=== PATIENT | female | born 1940 | race Caucasian/White ===

== ENCOUNTER 2016-06-08 11:27 | Outpatient (CLI) | payer OTHER, BC ==
[2016-06-08] MEDS ORDERED: IMMUNE GLOBULIN 10 GM/100 ML VIAL IV ONE (12:00)
[2016-06-08] MEDS ORDERED: IMMUNE GLOBULIN 20 GM/200 ML VIAL IV ONE (12:00)
[2016-06-08 20:05] VITALS: RESP 18
[2016-06-08 20:09] VITALS: BP 121/67; PULSE 55; TEMP 98.2; O2SAT 92
== END 2016-06-08 19:52 | disposition home or self-care (01) ==
LOC: F1NOP 11:27
PROVIDERS: ATTEND Internal Medicine
PROC: 3E033GC Introduction of Other Therapeutic Substance into Peripheral Vein, Percutaneous Approach (ICD-10-PCS; principal; 2016-06-08)
DX: D80.3 Selective deficiency of immunoglobulin G [IgG] subclasses (principal)
CPT/HCPCS: 36430; 96365; 96366; J1459

== ENCOUNTER → 2016-07-12 | Outpatient (CLI) | payer OTHER, BC ==
[~2016-07-12] MED LIST: IMMUNE GLOBULIN 100 ML IV ONE; IMMUNE GLOBULIN 200 ML IV ONE
[2016-07-12 16:18] VITALS: RESP 16; TEMP 97.7
[2016-07-12 16:28] VITALS: BP 128/59; PULSE 61; O2SAT 92
== END ==
LOC: FOBOP 10:34
PROVIDERS: ATTEND Internal Medicine
PROC: 3E033GC Introduction of Other Therapeutic Substance into Peripheral Vein, Percutaneous Approach (ICD-10-PCS; principal; 2016-07-12)
DX: D84.9 Immunodeficiency, unspecified (principal)
CPT/HCPCS: J1459 ×2

== ENCOUNTER → 2016-08-09 | Outpatient (CLI) | payer OTHER, BC | LOC: FCPNEURO 21:00 | PROVIDERS: ATTEND Psychiatry & Neurology Sleep Medicine | DX: G47.33 Obstructive sleep apnea (adult) (pediatric) (principal); G47.36 Sleep related hypoventilation in conditions classified elsewhere; G47.61 Periodic limb movement disorder ==

== ENCOUNTER 2016-08-17 10:58 | Outpatient (CLI) | payer OTHER, BC ==
[2016-08-17] MEDS ORDERED: IMMUNE GLOBULIN 10 GM/100 ML VIAL IV ONE ×2 (11:30→15:30)
[2016-08-17] MEDS ORDERED: IMMUNE GLOBULIN 20 GM/200 ML VIAL IV ONE (11:30)
[2016-08-17 16:54] VITALS: RESP 18; TEMP 98.6
[2016-08-17 16:55] VITALS: BP 117/64; PULSE 83; O2SAT 92
== END 2016-08-17 17:02 | disposition home or self-care (01) ==
LOC: F1NOP 10:58
PROVIDERS: ATTEND Internal Medicine
PROC: 3E033GC Introduction of Other Therapeutic Substance into Peripheral Vein, Percutaneous Approach (ICD-10-PCS; principal; 2016-08-17)
DX: D84.9 Immunodeficiency, unspecified (principal)
CPT/HCPCS: 96365; 96366; J1459

== ENCOUNTER 2016-09-21 10:08 | Outpatient (CLI) | payer OTHER, BC ==
[2016-09-21] MEDS ORDERED: IMMUNE GLOBULIN 20 GM/200 ML VIAL IV ONE (10:30)
[2016-09-21] MEDS ORDERED: IMMUNE GLOBULIN 10 GM/100 ML VIAL IV ONE ×2 (10:30→16:14)
[2016-09-21 10:41] VITALS: TEMP 98.4
[2016-09-21 11:47] VITALS: RESP 17
[2016-09-21 12:24] VITALS: O2SAT 93
[2016-09-21 12:30] VITALS: BP 137/80; PULSE 68
== END 2016-09-21 16:32 | disposition home or self-care (01) ==
LOC: F1NOP 10:08
PROVIDERS: ATTEND Internal Medicine
DX: D84.9 Immunodeficiency, unspecified (principal)
CPT/HCPCS: 96365; 96366; J1459; J1642

== ENCOUNTER → 2016-10-11 | Outpatient (CLI) | payer OTHER, BC | LOC: BRMIMAGING 13:38 | DX: Z13.820 Encounter for screening for osteoporosis (principal); Z81.0 Family history of intellectual disabilities ==

== ENCOUNTER → 2016-10-18 | Outpatient (CLI) | payer OTHER, BC | LOC: FIMAGING 15:29 | DX: M41.83 Other forms of scoliosis, cervicothoracic region (principal); M21.751 Unequal limb length (acquired), right femur ==

== ENCOUNTER 2016-10-26 10:59 | Outpatient (CLI) | payer OTHER, BC ==
[2016-10-26] MEDS ORDERED: ACETAMINOPHEN 500 MG TAB PO SCH (11:15)
[2016-10-26] MEDS ORDERED: IMMUNE GLOBULIN 20 GM/200 ML VIAL IV SCH (11:15)
[2016-10-26] MEDS ORDERED: IMMUNE GLOBULIN 10 GM/100 ML VIAL IV SCH (11:30)
[2016-10-26 12:31] VITALS: O2SAT 93
[2016-10-26 13:05] VITALS: TEMP 98.4
[2016-10-26 14:35] VITALS: BP 116/79; PULSE 91; RESP 18
== END 2016-10-26 15:44 | disposition home or self-care (01) ==
LOC: F1NOP 10:59
PROVIDERS: ATTEND Internal Medicine
PROC: 3E033GC Introduction of Other Therapeutic Substance into Peripheral Vein, Percutaneous Approach (ICD-10-PCS; principal; 2016-10-26)
DX: D80.3 Selective deficiency of immunoglobulin G [IgG] subclasses (principal); J18.9 Pneumonia, unspecified organism
CPT/HCPCS: 96365; 96366; J1459; J1642

== ENCOUNTER 2016-11-28 11:31 | Outpatient (CLI) | payer OTHER, BC ==
[~2016-11-28 11:31] MED LIST changes: -IMMUNE GLOBULIN 100 ML IV ONE; +IMMUNE GLOBULIN 20 GM/200 ML VIAL IV ONE; -IMMUNE GLOBULIN 200 ML IV ONE; +IMMUNE GLOBULIN GAMMA IM ONE; +[UNRECOGNIZED DRUG - OTHER] IM ONE
[2016-11-28] MEDS ORDERED: IMMUNE GLOBULIN 20 GM/200 ML VIAL IV ONE ×2 (11:45→12:15)
[2016-11-28] MEDS ORDERED: IMMUNE GLOBULIN 10 GM/100 ML VIAL IV ONE (12:15)
[2016-11-28 17:05] VITALS: BP 126/62; PULSE 61; RESP 16; TEMP 98.1; O2SAT 92
== END 2016-11-28 18:06 | disposition home or self-care (01) ==
LOC: F1NOP 11:31
PROVIDERS: ATTEND Internal Medicine
PROC: 3E033GC Introduction of Other Therapeutic Substance into Peripheral Vein, Percutaneous Approach (ICD-10-PCS; principal; 2016-11-28)
DX: D80.3 Selective deficiency of immunoglobulin G [IgG] subclasses (principal); Z87.01 Personal history of pneumonia (recurrent)
CPT/HCPCS: 96365; 96366; J1459; J1642

== ENCOUNTER → 2016-12-21 | Outpatient (CLI) | payer OTHER, BC ==
[~2016-12-21] MED LIST changes: +ACETAMINOPHEN 500 MG TAB PO SCH; +IMMUNE GLOBULIN 10 GM/100 ML VIAL IV ONE; +IMMUNE GLOBULIN 20 GM/200 ML VIAL IV SCH; -IMMUNE GLOBULIN GAMMA IM ONE; -[UNRECOGNIZED DRUG - OTHER] IM ONE; +diphenhydrAMINE 25 MG CAP PO SCH
[2016-12-21 14:29] VITALS: TEMP 98.8
[2016-12-21 15:02] VITALS: BP 136/72; PULSE 73; RESP 17; O2SAT 92
== END ==
LOC: F1NOP 12:19
PROVIDERS: ATTEND Internal Medicine
PROC: 3E033GC Introduction of Other Therapeutic Substance into Peripheral Vein, Percutaneous Approach (ICD-10-PCS; principal; 2016-12-21)
DX: D80.3 Selective deficiency of immunoglobulin G [IgG] subclasses (principal)
CPT/HCPCS: J1459; J1642

== ENCOUNTER → 2017-01-27 | Outpatient (CLI) | payer OTHER, BC ==
[~2017-01-27] MED LIST changes: -ACETAMINOPHEN 500 MG TAB PO SCH; -IMMUNE GLOBULIN 20 GM/200 ML VIAL IV SCH; -diphenhydrAMINE 25 MG CAP PO SCH
[2017-01-27 11:27] VITALS: BP 119/68; PULSE 61; RESP 18; TEMP 97.9; O2SAT 93
== END ==
LOC: F1NOP 10:36
PROVIDERS: ATTEND Internal Medicine
PROC: 3E033GC Introduction of Other Therapeutic Substance into Peripheral Vein, Percutaneous Approach (ICD-10-PCS; principal; 2017-01-27)
DX: D80.3 Selective deficiency of immunoglobulin G [IgG] subclasses (principal)
CPT/HCPCS: 96365; 96366; J1459; J1642

== ENCOUNTER 2017-02-27 11:10 | Outpatient (CLI) | payer OTHER, BC ==
[2017-02-27] MEDS ORDERED: diphenhydrAMINE 25 MG CAP PO ONE (11:21)
[2017-02-27] MEDS ORDERED: ACETAMINOPHEN 500 MG TAB PO ONE (11:21)
[2017-02-27] MEDS ORDERED: IMMUNE GLOBULIN 20 GM/200 ML VIAL IV ONE (12:30)
[2017-02-27] MEDS ORDERED: IMMUNE GLOBULIN 10 GM/100 ML VIAL IV ONE (12:30)
[2017-02-27 12:52] VITALS: TEMP 98.1
[2017-02-27 13:11] VITALS: O2SAT 93
[2017-02-27 14:02] VITALS: BP 113/84; PULSE 69; RESP 18
== END 2017-02-27 15:38 | disposition home or self-care (01) ==
LOC: F1NOP 11:10
PROVIDERS: ATTEND Internal Medicine
PROC: 3E033GC Introduction of Other Therapeutic Substance into Peripheral Vein, Percutaneous Approach (ICD-10-PCS; principal; 2017-02-27)
DX: D80.3 Selective deficiency of immunoglobulin G [IgG] subclasses (principal)
CPT/HCPCS: 96365; 96366; J1459; J1642

== ENCOUNTER 2017-05-06 10:39 | Outpatient (CLI) | payer OTHER, BC ==
[2017-05-06] MEDS ORDERED: IMMUNE GLOBULIN 20 GM/200 ML VIAL IV SCH ×2 (11:09→11:45)
[2017-05-06] MEDS ORDERED: IMMUNE GLOBULIN 10 GM/100 ML VIAL IV SCH ×2 (11:45)
[2017-05-06 16:27] VITALS: BP 113/58; PULSE 67; RESP 20; TEMP 98.5; O2SAT 95
== END 2017-05-06 17:08 | disposition home or self-care (01) ==
LOC: F1NOP 10:39
PROVIDERS: ATTEND Internal Medicine
PROC: 30253S1 (ICD-10-PCS; principal; 2017-05-06)
DX: D80.3 Selective deficiency of immunoglobulin G [IgG] subclasses (principal)
CPT/HCPCS: 96365; 96366; J1459; J1642

== ENCOUNTER 2017-06-10 10:49 | Outpatient (CLI) | payer OTHER, BC ==
[2017-06-10] MEDS ORDERED: ACETAMINOPHEN 500 MG TAB PO SCH (10:55)
[2017-06-10] MEDS ORDERED: diphenhydrAMINE 25 MG CAP PO SCH (10:55)
[2017-06-10] MEDS ORDERED: IMMUNE GLOBULIN 20 GM/200 ML VIAL IV SCH (10:55)
[2017-06-10] MEDS ORDERED: IMMUNE GLOBULIN 20 GM/200 ML VIAL IV ONE (11:15)
[2017-06-10 16:50] VITALS: BP 121/63; PULSE 63; RESP 17; TEMP 98.6; O2SAT 95
== END 2017-06-10 16:55 | disposition home or self-care (01) ==
LOC: F1NOP 10:49
PROVIDERS: ATTEND Internal Medicine
PROC: 30233S1 Transfusion of Nonautologous Globulin into Peripheral Vein, Percutaneous Approach (ICD-10-PCS; principal; 2017-06-10)
DX: D80.3 Selective deficiency of immunoglobulin G [IgG] subclasses (principal); M06.9 Rheumatoid arthritis, unspecified; J45.909 Unspecified asthma, uncomplicated
CPT/HCPCS: 96365; 96366; J1459; J1642

== ENCOUNTER → 2017-08-04 | Outpatient (CLI) | payer OTHER, BC ==
[~2017-08-04] MED LIST changes: +ACETAMINOPHEN 500 MG TAB PO SCH; -IMMUNE GLOBULIN 20 GM/200 ML VIAL IV ONE; +IMMUNE GLOBULIN 20 GM/200 ML VIAL IV SCH; +diphenhydrAMINE 25 MG CAP PO SCH
[2017-08-04 15:11] VITALS: PULSE 67
[2017-08-04 16:37] VITALS: BP 141/71; RESP 17; TEMP 98.1; O2SAT 95
== END ==
LOC: F1NOP 10:44
PROVIDERS: ATTEND Internal Medicine
PROC: 30233S1 Transfusion of Nonautologous Globulin into Peripheral Vein, Percutaneous Approach (ICD-10-PCS; principal; 2017-08-04)
DX: D80.3 Selective deficiency of immunoglobulin G [IgG] subclasses (principal); J18.9 Pneumonia, unspecified organism
CPT/HCPCS: 96365; 96366; J1459; J1642

== ENCOUNTER 2017-09-04 11:08 | Outpatient (CLI) | payer OTHER, BC ==
[2017-09-04] MEDS ORDERED: IMMUNE GLOBULIN 20 GM/200 ML VIAL IV ONE (11:34)
[2017-09-04] MEDS ORDERED: IMMUNE GLOBULIN 10 GM/100 ML VIAL IV ONE (11:45)
[2017-09-04 17:05] VITALS: BP 114/70
== END 2017-09-04 18:03 | disposition home or self-care (01) ==
LOC: F1NOP 11:08
PROVIDERS: ATTEND Internal Medicine
PROC: 30233S1 Transfusion of Nonautologous Globulin into Peripheral Vein, Percutaneous Approach (ICD-10-PCS; principal; 2017-09-04)
DX: D80.3 Selective deficiency of immunoglobulin G [IgG] subclasses (principal)
CPT/HCPCS: 96365; 96366; J1459; J1642

== ENCOUNTER 2017-10-05 12:32 | Outpatient (CLI) | payer OTHER, BC ==
[2017-10-05] MEDS ORDERED: ACETAMINOPHEN 325 MG TAB PO SCH (12:44)
[2017-10-05] MEDS ORDERED: diphenhydrAMINE 25 MG CAP PO SCH (12:44)
[2017-10-05] MEDS ORDERED: IMMUNE GLOBULIN 20 GM/200 ML VIAL IV SCH ×2 (12:44→14:15)
[2017-10-05] MEDS ORDERED: IMMUNE GLOBULIN 10 GM/100 ML VIAL IV ONE (14:15)
[2017-10-05 17:21] VITALS: BP 137/74
== END 2017-10-05 19:29 | disposition home or self-care (01) ==
LOC: F1NOP 12:32
PROVIDERS: ATTEND Internal Medicine
PROC: 30233S1 Transfusion of Nonautologous Globulin into Peripheral Vein, Percutaneous Approach (ICD-10-PCS; principal; 2017-10-05)
DX: D80.3 Selective deficiency of immunoglobulin G [IgG] subclasses (principal)
CPT/HCPCS: 96365; 96366; J1459; J1642

== ENCOUNTER 2017-11-11 10:44 | Outpatient (CLI) | payer OTHER, BC ==
[2017-11-11] MEDS ORDERED: IMMUNE GLOBULIN 20 GM/200 ML VIAL IV SCH (10:59)
[2017-11-11] MEDS ORDERED: IMMUNE GLOBULIN 20 GM/200 ML VIAL IV ONE (11:15)
[2017-11-11] MEDS ORDERED: IMMUNE GLOBULIN 10 GM/100 ML VIAL IV ONE (11:15)
[2017-11-11 16:56] VITALS: BP 106/51
== END 2017-11-11 17:00 | disposition home or self-care (01) ==
LOC: F1NOP 10:44
PROVIDERS: ATTEND Internal Medicine
PROC: 30233S1 Transfusion of Nonautologous Globulin into Peripheral Vein, Percutaneous Approach (ICD-10-PCS; principal; 2017-11-11)
DX: D80.3 Selective deficiency of immunoglobulin G [IgG] subclasses (principal)
CPT/HCPCS: 96365; 96366; J1459; J1642

== ENCOUNTER 2018-01-17 10:47 | Outpatient (CLI) | payer OTHER, BC ==
[2018-01-17] MEDS ORDERED: IMMUNE GLOBULIN 20 GM/200 ML VIAL IV SCH ×2 (11:03→11:30)
[2018-01-17 11:10] VITALS: BP 95/73
[2018-01-17] MEDS ORDERED: IMMUNE GLOBULIN 10 GM/100 ML VIAL IV SCH (11:30)
== END 2018-01-17 15:31 | disposition home or self-care (01) ==
LOC: F1NOP 10:47
PROVIDERS: ATTEND Internal Medicine
DX: D80.3 Selective deficiency of immunoglobulin G [IgG] subclasses (principal)
CPT/HCPCS: J1459; J1642

== ENCOUNTER → 2018-02-12 | Outpatient (CLI) | payer OTHER, BC ==
[~2018-02-12] MED LIST changes: -ACETAMINOPHEN 500 MG TAB PO SCH; +IMMUNE GLOBULIN 20 GM/200 ML VIAL IV ONE; -IMMUNE GLOBULIN 20 GM/200 ML VIAL IV SCH; -diphenhydrAMINE 25 MG CAP PO SCH
[2018-02-12 17:24] VITALS: BP 120/74
== END ==
LOC: F1NOP 10:39
PROVIDERS: ATTEND Internal Medicine
PROC: 30233S1 Transfusion of Nonautologous Globulin into Peripheral Vein, Percutaneous Approach (ICD-10-PCS; principal; 2018-02-12)
DX: D80.3 Selective deficiency of immunoglobulin G [IgG] subclasses (principal); Z45.2 Encounter for adjustment and management of vascular access device
CPT/HCPCS: 96365; 96366; J1459; J1642

== ENCOUNTER 2018-03-16 10:32 | Outpatient (CLI) | payer OTHER, BC ==
[2018-03-16] MEDS ORDERED: IMMUNE GLOBULIN 20 GM/200 ML VIAL IV SCH (10:50)
[2018-03-16 11:30] VITALS: BP 122/67
[2018-03-16] MEDS ORDERED: IMMUNE GLOBULIN 20 GM/200 ML VIAL IV ONE ×2 (12:15→12:30)
[2018-03-16] MEDS ORDERED: IMMUNE GLOBULIN 10 GM/100 ML VIAL IV ONE (12:15)
== END 2018-03-16 15:36 | disposition home or self-care (01) ==
LOC: F1NOP 10:32
PROVIDERS: ATTEND Internal Medicine
PROC: 30233S1 Transfusion of Nonautologous Globulin into Peripheral Vein, Percutaneous Approach (ICD-10-PCS; principal; 2018-03-16)
DX: D84.8 Other specified immunodeficiencies (principal)
CPT/HCPCS: 96365; 96366; J1459; J1642

== ENCOUNTER 2018-04-27 10:19 | Outpatient (CLI) | payer OTHER, BC ==
[2018-04-27] MEDS ORDERED: IMMUNE GLOBULIN 20 GM/200 ML VIAL IV ONE (11:20)
[2018-04-27] MEDS ORDERED: IMMUNE GLOBULIN 10 GM/100 ML VIAL IV ONE (11:30)
[2018-04-27 12:24] VITALS: BP 124/62
== END 2018-04-27 15:06 | disposition home or self-care (01) ==
LOC: F1NOP 10:19
PROVIDERS: ATTEND Internal Medicine
PROC: 30233S1 Transfusion of Nonautologous Globulin into Peripheral Vein, Percutaneous Approach (ICD-10-PCS; principal; 2018-04-27)
DX: D80.3 Selective deficiency of immunoglobulin G [IgG] subclasses (principal)
CPT/HCPCS: 96365; 96366; J1459; J1642

== ENCOUNTER → 2018-06-13 | Outpatient (CLI) | payer OTHER, BC ==
[~2018-06-13] MED LIST changes: -IMMUNE GLOBULIN 10 GM/100 ML VIAL IV ONE; +IMMUNE GLOBULIN 10 GM/100 ML VIAL IV SCH; -IMMUNE GLOBULIN 20 GM/200 ML VIAL IV ONE; +IMMUNE GLOBULIN 20 GM/200 ML VIAL IV SCH
[2018-06-13 15:35] VITALS: BP 126/67
== END ==
LOC: F1NOP 10:25
PROVIDERS: ATTEND Internal Medicine
PROC: 30233S1 Transfusion of Nonautologous Globulin into Peripheral Vein, Percutaneous Approach (ICD-10-PCS; principal; 2018-06-13)
DX: D80.3 Selective deficiency of immunoglobulin G [IgG] subclasses (principal)
CPT/HCPCS: 96361; 96365; J1459

== ENCOUNTER → 2018-08-04 | Outpatient (CLI) | payer OTHER, BC ==
[~2018-08-04] MED LIST changes: +IMMUNE GLOBULIN 10 GM/100 ML VIAL IV ONE; -IMMUNE GLOBULIN 10 GM/100 ML VIAL IV SCH; +IMMUNE GLOBULIN 20 GM/200 ML VIAL IV ONE; -IMMUNE GLOBULIN 20 GM/200 ML VIAL IV SCH
[2018-08-04 12:23] VITALS: BP 142/68
== END ==
LOC: F1NOP 10:17
PROVIDERS: ATTEND Internal Medicine
PROC: 30233S1 Transfusion of Nonautologous Globulin into Peripheral Vein, Percutaneous Approach (ICD-10-PCS; principal; 2018-08-04)
DX: D80.3 Selective deficiency of immunoglobulin G [IgG] subclasses (principal)
CPT/HCPCS: 96365; 96366; J1459; J1642

== ENCOUNTER → 2018-09-03 | Outpatient (CLI) | payer OTHER, BC ==
[2018-09-03 14:01] VITALS: BP 127/75
== END ==
LOC: F1NOP 10:49
PROVIDERS: ATTEND Internal Medicine
PROC: 30233S1 Transfusion of Nonautologous Globulin into Peripheral Vein, Percutaneous Approach (ICD-10-PCS; principal; 2018-09-03)
DX: D80.3 Selective deficiency of immunoglobulin G [IgG] subclasses (principal)
CPT/HCPCS: 96365; 96366; J1459; J1642

== ENCOUNTER 2018-10-10 10:10 | Outpatient (CLI) | payer OTHER, BC ==
[2018-10-10] MEDS ORDERED: IMMUNE GLOBULIN 20 GM/200 ML VIAL IV SCH ×2 (10:56→12:00)
[2018-10-10] MEDS ORDERED: IMMUNE GLOBULIN 10 GM/100 ML VIAL IV ONE (12:00)
[2018-10-10 16:20] VITALS: BP 115/62
== END 2018-10-10 16:30 | disposition home or self-care (01) ==
LOC: F1NOP 10:10
PROVIDERS: ATTEND Internal Medicine
DX: D80.3 Selective deficiency of immunoglobulin G [IgG] subclasses (principal)
CPT/HCPCS: 96365; 96366; J1459; J1642

== ENCOUNTER → 2018-10-17 | Outpatient (CLI) | payer OTHER, BC | LOC: FIMAGING 13:57 | PROVIDERS: ATTEND Physician Assistant | DX: M79.89 Other specified soft tissue disorders (principal) | CPT/HCPCS: 71046; 78582; A9540; A9558 ==

== ENCOUNTER → 2018-10-25 | Outpatient (CLI) | payer OTHER, BC | LOC: BHFA 10:45 | PROVIDERS: ATTEND Internal Medicine Cardiovascular Disease | DX: I48.91 Unspecified atrial fibrillation (principal) ==

== ENCOUNTER → 2018-11-16 | Outpatient (CLI) | payer OTHER, BC | LOC: F1NOP 11:06 ==